=== PATIENT | male | born 1970 | race Caucasian/White ===

== ENCOUNTER 2018-05-07 15:46 | Emergency (ER) | payer MEDICARE, OTHER, SELFPAY ==
[2018-05-07 16:01] VITALS: BP 132/64; PULSE 96; RESP 18; TEMP 36.7; O2SAT 96; BMI 28.7
--- NOTE | 2018-05-07 18:44 | PC.NURSE ---
pt has wound that is already in final stages of healing, scab closing laceration. no drainage no redness. Asked to place a bacitracin dressing on. Used bacitracin, adaptic dressing and then conforming guaze around that.
--- NOTE | 2018-05-12 14:06 | ED.WOUNDLAC ---
HPI - Wound/Laceration General Chief Complaint: Wound/Laceration Stated Complaint: PAIN/LACERATION R ELBOW Time Seen by Provider: 05/07/18 17:46 Source: patient and family Mode of arrival: ambulatory Limitations: no limitations History of Present Illness HPI narrative: Patient presents emergency department complaining of laceration to right elbow. Patient's stay in the wound about 24 hr ago after striking the elbow on a sharp edge. Patient's mother states that the patient did not want to seek any medical attention at the time, and so the wound was simply washed and bandaged. The patient was not injured in any other way. He denies drainage from the wound. No redness or swelling spreading way from the wound. No fevers or chills. No other complaints at this time. Related Data Previous Rx's Medication Instructions Recorded Depakote 500 mg tablet,delayed 500 mg PO BID 30 Days #60 tab NS 10/21/17 release Risperdal 1 mg tablet 2 mg PO QAM 30 Days #60 tab NS 10/21/17 Risperdal 3 mg tablet 3 mg PO BEDTIME 30 Days #30 tab NS 10/21/17 benztropine 2 mg tablet 2 mg PO BID 30 Days #60 tab NS 10/21/17 Ativan 0.5 mg tablet 1 mg PO BID #124 tab NS MDD 5 tabs 02/14/18 Risperdal 1 mg tablet See Rx Instructions PO DAILY #450 03/02/18 tab NS Allergies Allergy/AdvReac Type Severity Reaction Status Date / Time No Known Drug Allergies Allergy Verified 05/07/18 16:01 Review of Systems Constitutional Denies chills, Denies fever(s), Denies lethargy and Denies weakness Eyes Denies change in vision, Denies eye discharge, Denies irritation and Denies loss of vision ENT Ears, Nose, Mouth, and Throat: Denies change in voice, Denies neck pain and Denies sore throat Cardiovascular Denies chest pain, Denies irregular heart rhythm, Denies lightheadedness, Denies palpitations, Denies dyspnea, Denies dyspnea on exertion and Denies orthopnea Respiratory Denies cough, Denies dyspnea, Denies dyspnea on exertion and Denies wheezing Gastrointestinal Gastrointestinal: Denies abdominal pain, Denies change in bowel habits, Denies diarrhea, Denies nausea and Denies vomiting Genitourinary Denies hematuria, Denies flank pain, Denies urinary incontinence and Denies urinary urgency Musculoskeletal Denies neck pain Integumentary/Breasts Denies pruritus, Denies erythema, Denies rash and Reports wounds ( Laceration right elbow) Neurologic Denies confusion, Denies loss of vision and Denies weakness Psychiatric Denies anxiety, Denies confusion, Denies depression, Denies homicidal ideation and Denies suicidal ideation Endocrine Denies palpitations Hematologic/Lymphatic Denies easy bruising Allergic/Immunologic Denies wheezing PFSH Medical History Developmental delay, mild (Acute) Surgical History No pertinent past surgical history (Acute) Family History Mother Hypertension Obstructive sleep apnea of adult Social History marital status: unmarried,single household members: other lives independently: No housing: house occupational status: unemployed seatbelt use: always firearms in home: No Smoking Status: Never smoker alcohol intake: never during the past year weight has: remained stable caffeine: No Type(s) of exercise: walking and regular exercise Family History Mother Hypertension Obstructive sleep apnea of adult Social History marital status: unmarried,single household members: other lives independently: No housing: house occupational status: unemployed seatbelt use: always firearms in home: No Smoking Status: Never smoker alcohol intake: never during the past year weight has: remained stable caffeine: No Type(s) of exercise: walking and regular exercise Exam Initial Vital Signs Initial Vital Signs: Vital Signs Temperature 98.1 F 05/07/18 16:01 Pulse Rate 96 H 05/07/18 16:01 Respiratory Rate 18 05/07/18 16:01 Blood Pressure 132/64 05/07/18 16:01 Pulse Oximetry 96 05/07/18 16:01 Const General: cooperative and well developed Nutritional Appearance: well nourished Orientation: alert, awake, oriented x3 and not confused HENMT Head: normocephalic and atraumatic Ears: external ears normal and TM's normal bilaterally Nose: external nose normal and No nasal discharge Face and sinus: sinuses nontender, face symmetric, no sinus tenderness and No dry mucous membranes Mouth: oral mucosae normal and moist mucous membranes Teeth and gingiva: dentition normal Throat: tonsils normal and uvula midline Eyes General: appearance normal, both eyes and all related structures Eyelids: eyelids normal Conjunctivae: conjunctivae normal Sclera: sclerae normal Pupils: PERRL EOM: EOM intact bilaterally Neck Neck: normal visual inspection, trachea midline, No lymphadenopathy, No midline deformity and No JVD Lymphatic: No lymphedema Chest Chest: normal inspection of the chest Resp Effort & Inspection: normal respiratory effort, able to speak in complete sentences, no respiratory distress and no use of accessory muscles Cardio Rate: regular rate Rhythm: regular rhythm Pulses: normal peripheral pulses Back/Spine/Pelvis Back: No CVA tenderness Cervical Spine: cervical ROM normal and No pain with cervical ROM Thoracic/Lumbar Spine: thoracic and lumbar spine normal to inspection Skin General: no rashes or lesions noted, No jaundice and No petechiae Trauma: laceration ( see below) Other: patient has a 2 cm flap laceration which is subacute appearance over the olecranon on of his right elbow. The flap was adhesed to the underlying tissue, and a scab is in place. No drainage of any kind is noted from the wound. No bleeding. No erythema or swelling. No fluctuance. Tenderness is appropriate for the degree of injury. Patient has full range of motion of the elbow. Neuro General: alert, oriented x3, gait normal and no focal motor deficits Speech: speech normal Extrem General: full ROM ( specifically, right elbow) Psych Appearance: well kempt Mental Status: mental status grossly normal Attitude: cooperative Thought Content: normal and suicidality Judgment: judgment good Course Course Narrative: I did discuss with the patient and his mother that the laceration is too old to be repaired. We have discussed the principles of wound care at home and keeping the wound clean. We have also discussed the signs of infection in the usual indications for return. The wound has been dressed in the emergency department with antibiotic ointment. Patient is stable for discharge home. MDM - Wound/Laceration Medical Records Attestation: I reviewed the patient's medical records. Discharge Plan Departure Patient Disposition: Home Clinical Impression: Laceration Discharge Date/Time: 05/07/18 18:35 Interventions: ED Discharge Assessment Last Done: 05/07/18 18:35 Instructions: DI for Minor Laceration Activity Restrictions/Additional Instructions: Your wound is too old to suture at this time. However, if you would have come in on the same day you were wounded, it would have been able to have been stitched. At this time, you should keep the wound clean and generally dry, although you may let the water and soap run over the wound in the shower. However, do not rub or scrub the area until new skin has grown over the wound. If you develop painful, increasing swelling, or intense redness spreading away from the wound, you should return to the emergency department or to your doctor's office to determine antibiotic use. Prescriptions: No Action benztropine 2 mg tablet 2 mg PO BID 30 Days Qty: 60 RF: 11 divalproex [Depakote] 500 mg tablet,delayed release (DR/EC) 500 mg PO BID 30 Days Qty: 60 RF: 11 risperidone [Risperdal] 3 mg tablet 3 mg PO BEDTIME 30 Days Qty: 30 RF: 11 risperidone [Risperdal] 1 mg tablet 2 mg PO QAM 30 Days Qty: 60 RF: 11 lorazepam [Ativan] 0.5 mg tablet 1 mg PO BID MDD 5 tabs Qty: 124 RF: 5 risperidone [Risperdal] 1 mg tablet See Rx Instructions PO DAILY Qty: 450 RF: 0
== END 2018-05-07 18:35 | disposition home or self-care (01) ==
PROVIDERS: Emergency Provider Emergency Medicine
DX: S51.011A Laceration without foreign body of right elbow, initial encounter (principal)
CPT/HCPCS: 99282; 99283

== ENCOUNTER 2020-04-10 13:33 | Emergency (ER) | payer MEDICARE, OTHER, SELFPAY ==
[2020-04-10 13:39] VITALS: BP 150/81; PULSE 101; RESP 16; TEMP 36.6; O2SAT 98; BMI 27.6
--- NOTE | 2020-04-10 14:17 | PC.NURSE ---
Pt states there has been a bat in their house for the past few days and is worried about exposure and is requesting a rabies vaccine
--- NOTE | 2020-04-10 14:58 | ED_ITS ---
HPI - Recheck/Abnormal Lab/Rx General Chief Complaint: Recheck/Abnormal Lab/Rx Stated Complaint: needs rabies shot Time Seen by Provider: 04/10/20 14:17 Source: patient and family (mother) Mode of arrival: Ambulatory Limitations: no limitations History of Present Illness HPI narrative: This is a 50-year-old male with history of Asperger's/autistic tendencies per patient's mother. Patient and mother live together. MOther states that she believes she had a bat bite in the last 10-14 days. There is a small bloody spot on her brow, she did not have a siding about at that time but did have contact with the bat where it fluid or head the following Tuesday and then had noted to be flying around the room and with an unusual pattern. They were not able to capture it. They left the doors open and have not seen the back since. The patient has not had any known contact with the bat but does live within the house. Patient has had the vaccine for rabies in the past secondary to the physician feeling they were high risk. He has not had the globulin. He has not had the globulin. He does take the Loprox, benztropine, Risperdal and Ativan. Patient's primary care is Dr. Arshad. Related Data Previous Rx's Medication Instructions Recorded Depakote 500 mg tablet,delayed 500 mg PO BID 30 Days #60 tab NS 07/16/19 release benztropine 2 mg tablet See Rx Instructions .ROUTE 11/13/19 .COMPLEX #60 tab Risperdal 3 mg tablet 3 mg PO BID 30 Days #60 tab NS 11/23/19 Ativan 1 mg tablet 1 mg PO .COMPLEX #100 tab NS MDD 02/19/20 2.5MG lorazepam 0.5 mg tablet 1 mg PO .COMPLEX #125 tab 03/11/20 Allergies Allergy/AdvReac Type Severity Reaction Status Date / Time No Known Drug Allergies Allergy Verified 04/10/20 13:39 Review of Systems Review of Systems ROS Unobtainable: All systems reviewed & are unremarkable except as noted in HPI and below Patient History Medical History Developmental disability (~1970) Excessive daytime sleepiness Insomnia, persistent Surgical History No pertinent past surgical history Family History Mother Hypertension Obstructive sleep apnea of adult Social History marital status: unmarried,single household members: other lives independently: No housing: house occupational status: unemployed seatbelt use: always firearms in home: No Smoking Status: Never smoker alcohol intake: never during the past year weight has: remained stable caffeine: No Type(s) of exercise: walking and regular exercise Smoking Status: Never smoker Exam Narrative Exam Narrative: GENERAL: Alert and oriented x three, well-nourished male in no acute distress. HEENT: Head normocephalic, atraumatic, EOMI, pupils reactive, face symmetric, moist mucous membranes NECK: Supple, full range of motion CARDIOVASCULAR: Regular rate and rhythm without murmurs, rubs or gallops. RESPIRATORY: Breath sounds equal bilaterally, no wheezes rales or rhonchi. ABDOMEN: Soft, nontender. Normoactive bowel sounds all 4 quadrants. No guarding or rebound, rigidity, no mass : No CVA tenderness EXTREMITIES: Normal range of motion, no clubbing or edema. Neurovascularly in tact NEUROLOGICAL: Cranial nerves II through XII grossly intact. Moving all extremities SKIN: Warm, dry, no petechiae, no rashes or lesions. Initial Vital Signs Initial Vital Signs: Vital Signs Temperature 97.8 F 04/10/20 13:39 Pulse Rate 101 H 04/10/20 13:39 Respiratory Rate 16 04/10/20 13:39 Blood Pressure 150/81 H 04/10/20 13:39 Pulse Oximetry 98 04/10/20 13:39 Course Orders Ordered: Discontinued Medications Rabies Vaccine (Rabies Vaccine (Rabavert) 2.5 Units Syringe) 2.5 units IM .ONCE ONE Stop: 04/10/20 14:47 Last Admin: 04/10/20 15:01 Dose: 2.5 units Documented by: GI Vital Signs Vital signs: Vital Signs - 8 hr 04/10/20 13:39 04/10/20 15:16 04/10/20 15:44 Temperature 97.8 F Pulse Rate 101 H 105 H 99 H Respiratory Rate 16 Blood Pressure 150/81 H 144/80 H 143/74 H Pulse Oximetry 98 96 97 MDM - Recheck/Abnormal Lab/Rx MDM Narrative Medical decision making narrative: CDC guidelines were reviewed as patient has had his rabies vaccine in the past in 2006 but has not received the globulin. It is recommended by the CDC that patient have the vaccine but not the globulin. On day 0 and 3 for 2 doses total. Discharge Plan Departure Patient Disposition: Home Clinical Impression: Need for immunization against rabies Instructions: DI for Rabies Vaccine Activity Restrictions/Additional Instructions: CDC guidelines recommend that you have the rabies immunization for two doses total. Day 0-04/10/20 Day 3-04/13/20 is when you should receive your second dose It is recommended that you have at least 2 weeks from your last rabies vaccine between immunizations when receiving your Pfizer coronavirus vaccination, this would 04/28/20 or later. Please feel free to consult your physician for further recommendations. If you have any fevers, rashes, swelling of her lips face or mouth, altered mental status, new weakness numbness, difficulty with movement, chest pain, shortness of breath, dysphagia, or other new or concerning symptoms please return to the department for repeat evaluation. Prescriptions: No Action benztropine 2 mg tablet See Rx Instructions .ROUTE .COMPLEX Qty: 60 RF: 11 lorazepam [Ativan] 1 mg tablet 1 mg PO .COMPLEX MDD 2.5MG Qty: 100 RF: 2 Hold Instructions: 03/03/20 trying generic lorazepam 0.5 mg tablet 1 mg PO .COMPLEX Qty: 125 RF: 1 divalproex [Depakote] 500 mg tablet,delayed release (DR/EC) 500 mg PO BID 30 Days Qty: 60 RF: 11 risperidone [Risperdal] 3 mg tablet 3 mg PO BID 30 Days Qty: 60 RF: 5 Referrals: Porter Arshad MD [Primary Care Provider] -
[2020-04-10] MEDS: RABIES VACCINE (RABAVERT) 2.5 UNITS SYRINGE IM (15:01)
[2020-04-10 15:16] VITALS: BP 144/80; PULSE 105; O2SAT 96
[2020-04-10 15:44] VITALS: BP 143/74; PULSE 99; O2SAT 97
== END 2020-04-10 15:55 | disposition home or self-care (01) ==
PROVIDERS: Emergency Provider Emergency Medicine; PCP Internal Medicine
DX: S01.159A Open bite of unspecified eyelid and periocular area, initial encounter (principal); W64.XXXA Exposure to other animate mechanical forces, initial encounter; Z23 Encounter for immunization; F84.5 Asperger's syndrome
CPT/HCPCS: 90471; 90675; 99281; 99283

== ENCOUNTER 2020-04-14 14:28 | Emergency (ER) | payer MEDICARE, OTHER, SELFPAY ==
--- NOTE | 2020-04-14 14:48 | ED_ITS ---
HPI - Recheck/Abnormal Lab/Rx General Chief Complaint: Environmental Exposure Stated Complaint: second rabies titer Time Seen by Provider: 04/14/20 14:46 Source: patient and family Mode of arrival: Ambulatory Limitations: no limitations History of Present Illness HPI narrative: 50-year-old male nonsmoker with history of Asperger's returns with his mother requesting the 2nd, scheduled rabies shot. He notes mother both had a bat flying around their home at some point in the last 2 weeks and possibly had a bite. They were seen and evaluated here in the emergency department and had the initial shot on 04/10. He has had no symptoms. He has no chest pain or cough. He has no fever chills. He has no nausea, vomiting or diarrhea. Initial visit (ago): day(s) Initial visit for: animal bite Symptoms since prior visit: no new symptoms Associated symptoms: none Related Data Previous Rx's Medication Instructions Recorded Depakote 500 mg tablet,delayed 500 mg PO BID 30 Days #60 tab NS 07/16/19 release benztropine 2 mg tablet See Rx Instructions .ROUTE 11/13/19 .COMPLEX #60 tab Risperdal 3 mg tablet 3 mg PO BID 30 Days #60 tab NS 11/23/19 Ativan 1 mg tablet 1 mg PO .COMPLEX #100 tab NS MDD 02/19/20 2.5MG lorazepam 0.5 mg tablet 1 mg PO .COMPLEX #125 tab 03/11/20 Allergies Allergy/AdvReac Type Severity Reaction Status Date / Time No Known Drug Allergies Allergy Verified 04/10/20 13:39 Review of Systems Constitutional Constitutional: Denies chills, Denies fatigue, Denies fever(s), Denies frequent falls, Denies lethargy and Denies weakness Eyes Eyes: Denies change in vision, Denies eye discharge, Denies irritation and Denies loss of vision ENT Ears, Nose, Mouth, and Throat: Denies change in voice, Denies dizziness, Denies neck pain, Denies sore throat and Denies throat swelling Cardiovascular Cardiovascular: Denies chest pain, Denies irregular heart rhythm, Denies lightheadedness, Denies palpitations, Denies dyspnea, Denies dyspnea on exertion and Denies orthopnea Respiratory Respiratory: Denies cough, Denies dyspnea, Denies dyspnea on exertion and Denies wheezing Gastrointestinal Gastrointestinal: Denies abdominal pain, Denies change in bowel habits, Denies diarrhea, Denies nausea and Denies vomiting Musculoskeletal Musculoskeletal: Denies neck pain and Denies numbness Integumentary/Breasts Skin/Breast: Denies pruritus, Denies erythema, Denies rash and Denies wounds Neurologic Neurologic: Denies behavioral changes, Denies confusion, Denies dizziness, Denies frequent falls, Denies loss of vision, Denies numbness and Denies weakness Psychiatric Psychiatric: Denies anxiety, Denies behavioral changes, Denies confusion, Denies depression, Denies homicidal ideation and Denies suicidal ideation Endocrine Endocrine: Denies fatigue, Denies flushing and Denies palpitations Hematologic/Lymphatic Hematologic/Lymphatic: Denies easy bruising Allergic/Immunologic Allergic/Immunologic: Denies urticaria, Denies throat swelling and Denies w heezing Patient History Medical History Developmental disability (~1970) Excessive daytime sleepiness Insomnia, persistent Surgical History No pertinent past surgical history Family History Mother Hypertension Obstructive sleep apnea of adult Social History marital status: unmarried,single household members: other lives independently: No housing: house occupational status: unemployed seatbelt use: always firearms in home: No Smoking Status: Never smoker alcohol intake: never during the past year weight has: remained stable caffeine: No Type(s) of exercise: walking and regular exercise Smoking Status: Never smoker Exam Narrative Exam Narrative: GEN: Awake, alert. EYES: Pupils are equal, round, and reactive to light and accommodation. Extraoccular muscles are intact bilaterally. There is no subconjunctival hemorrhage or exudate. CHEST: Lungs are clear to auscultation bilaterally and free of wheezes, rales, or rhonchi. Heart rate is regular rhythm, there are no murmurs, clicks, rubs, or gallops. There is no chest wall tenderness. ABD: Abdomen is soft and nontender. There is no guarding or rebound. Bowel sounds are normal in all 4 quadrants. There is no mass or organomegaly. EXT: Full painless ROM of all extremities with no loss of sensation or strength. SKIN: Warm, pink, and dry. No erythema or rash Initial Vital Signs Initial Vital Signs: Vital Signs Temperature 96.7 F L 04/14/20 15:06 Pulse Rate 95 H 04/14/20 15:06 Respiratory Rate 14 04/14/20 15:06 Blood Pressure 117/64 04/14/20 15:06 Pulse Oximetry 95 04/14/20 15:06 Course Orders Ordered: Discontinued Medications Rabies Vaccine (Rabies Vaccine (Rabavert) 2.5 Units Syringe) 2.5 units IM .ONCE ONE Stop: 04/14/20 14:49 Last Admin: 04/14/20 15:13 Dose: 2.5 units Documented by: SVETA Vital Signs Vital signs: Vital Signs - 8 hr 04/14/20 15:06 04/14/20 16:02 Temperature 96.7 F L Pulse Rate 95 H 83 Respiratory Rate 14 14 Blood Pressure 117/64 137/78 Pulse Oximetry 95 100 Discharge Plan Departure Patient Disposition: Home Clinical Impression: Need for immunization against rabies Instructions: DI for Rabies Vaccine Activity Restrictions/Additional Instructions: *You have been diagnosed with [2nd rabies shot] *What to do: * Continue to Take medications as directed. Per CDC recommendations there are no more shots needed. *Follow up with your primary care provider in 2-3 days, call for an zoë ointment. Let them know you were seen in the Emergency Department and that we ask that you be seen in follow up *Return to ER if you should have any new, worsening or concerning symptoms Prescriptions: No Action benztropine 2 mg tablet See Rx Instructions .ROUTE .COMPLEX Qty: 60 RF: 11 lorazepam [Ativan] 1 mg tablet 1 mg PO .COMPLEX MDD 2.5MG Qty: 100 RF: 2 Hold Instructions: 03/03/20 trying generic lorazepam 0.5 mg tablet 1 mg PO .COMPLEX Qty: 125 RF: 1 divalproex [Depakote] 500 mg tablet,delayed release (DR/EC) 500 mg PO BID 30 Days Qty: 60 RF: 11 risperidone [Risperdal] 3 mg tablet 3 mg PO BID 30 Days Qty: 60 RF: 5 Referrals: Porter Arshad MD [Primary Care Provider] -
[2020-04-14 15:06] VITALS: BP 117/64; PULSE 95; RESP 14; TEMP 35.9; O2SAT 95; BMI 27.6
[2020-04-14] MEDS: RABIES VACCINE (RABAVERT) 2.5 UNITS SYRINGE IM (15:13)
[2020-04-14 16:02] VITALS: BP 137/78; PULSE 83; RESP 14; O2SAT 100
== END 2020-04-14 16:04 | disposition home or self-care (01) ==
PROVIDERS: Emergency Provider Emergency Medicine; PCP Internal Medicine
DX: Z23 Encounter for immunization (principal); T14.8XXA Other injury of unspecified body region, initial encounter; W64.XXXA Exposure to other animate mechanical forces, initial encounter; F84.5 Asperger's syndrome
CPT/HCPCS: 90471; 90675; 99281; 99283

== ENCOUNTER → 2020-06-02 08:55 | Outpatient (CLI) | payer MEDICARE, OTHER, SELFPAY ==
[2020-06-02 09:38] LABS: Add Manual Diff / Slide Review NO; Basophils Absolute Auto 100 /uL (0-100); Basophils Percent Auto 0.9 % (0-2); Eosinophils Absolute Auto 100 /uL (0-450); Eosinophils Percent Auto 2.1 % (2-4); Hemoglobin 14.6 g/dL (13.5-17.5); Lymphocytes Absolute Auto 3100 /uL (1100-4500); Lymphocytes Percent Auto 46.2 % (25-40); Mean Corpuscular HGB Conc 33.9 % (30-36); Mean Corpuscular Hemoglobin 28.1 PG (26-34); Mean Corpuscular Volume 82.8 fL (80-100); Monocytes Absolute Auto 500 /uL (0-900); Monocytes Percent Auto 7.8 % (3-14); Neutrophils Absolute Auto 2900 /uL (1500-7000); Platelet Count 212 X10^3/uL (150-400); Red Blood Cell Count 5.19 X10^6/uL (4.5-5.9); Red Cell Distribution Width 13.8 % (11.6-14.8); White Blood Cell Count 6.6 X10^3/uL (4.5-11.0)
[2020-06-02 09:54] LABS: Hemoglobin A1C% w Est Avg Glu 5.6 % (4.0-6.0)
[2020-06-02 10:26] LABS: BUN Creatinine Ratio 13.5 (6-22); Blood Urea Nitrogen 10 mg/dL (9-20); Calcium 10.4 mg/dL (8.4-10.2); Carbon Dioxide 26 mmol/L (22-32); Chloride 102 mmol/L (98-107); Estimated Glomerular Filt Rate > 60.0 mL/min (>60); Glucose 112 mg/dL (70-100); HEMOLYSIS < 15 (0-50); Potassium 4.7 mmol/L (3.4-5.1); Sodium 138 mmol/L (137-145)
[2020-06-03 02:00] LABS: Valproic Acid (Depakene) Total 61 ug/mL (50-100)
== END ==
PROVIDERS: PCP Internal Medicine; Referring Provider Internal Medicine; Visit Provider Internal Medicine
DX: F84.5 Asperger's syndrome (principal); E11.9 Type 2 diabetes mellitus without complications; R73.02 Impaired glucose tolerance (oral)
CPT/HCPCS: 36415; 80048; 80164; 83036; 85025

== ENCOUNTER 2022-02-02 11:05 | Emergency (ER) | payer MEDICARE, OTHER, SELFPAY ==
[2022-02-02 11:22] VITALS: BP 151/70; PULSE 108; RESP 16; TEMP 35.7; O2SAT 98; BMI 28.5
--- NOTE | 2022-02-02 11:33 | ED.EXTPRO ---
HPI - Extremity Problem General Chief complaint: Extremity Problem,Nontraumatic Stated complaint: right foot ingrown toenail Time Seen by Provider: 02/02/22 11:16 Source: patient Mode of arrival: Family Vehicle History of Present Illness HPI Narrative: 52-year-old male here for evaluation what he states are to ingrown toenails to his right foot. He does have an appointment with a marine engineering technicians later this month however his mother was at cardiac rehab here at the hospital and he thought that he would come over to the emergency department to have it evaluated. Describes pain to the 3rd and 4th toes of the right foot. Related Data Previous Rx's Medication Instructions Recorded Depakote 500 mg tablet,delayed 500 mg PO BID 30 days #60 tabs 07/16/19 release (divalproex) benztropine 2 mg tablet See Rx Instructions .Route 11/13/19 .COMPLEX #60 tabs Risperdal 3 mg tablet (risperidone) 3 mg PO BID 30 days #60 tabs 11/23/19 Ativan 1 mg tablet (lorazepam) 1 mg PO .COMPLEX #100 tabs 02/19/20 lorazepam 0.5 mg tablet 1 mg PO .COMPLEX #125 tabs 03/11/20 Allergies Allergy/AdvReac Type Severity Reaction Status Date / Time No Known Drug Allergies Allergy Verified 02/02/22 11:22 Review of Systems Constitutional Constitutional: Reports system reviewed and no additional complaints, except as documented Musculoskeletal Musculoskeletal: Reports system reviewed and no additional complaints, except as documented Integumentary/Breasts Skin/Breast: Reports system reviewed and no additional complaints, except as documented Patient History Medical History Developmental disability (~1970) Excessive daytime sleepiness Insomnia, persistent Surgical History No pertinent past surgical history Family History Mother Hypertension Obstructive sleep apnea of adult Social History marital status: unmarried,single household members: other lives independently: No housing: house occupational status: unemployed seatbelt use: always firearms in home: No Smoking Status: Never smoker alcohol intake: never during the past year weight has: remained stable caffeine: No Type(s) of exercise: walking and regular exercise Smoking Status: Never smoker alcohol intake frequency: 0-2 drinks per day Substance Use Type: does not use Exam Initial Vital Signs Initial Vital Signs: Vital Signs Temperature 96.2 F L 02/02/22 11:22 Pulse Rate 108 H 02/02/22 11:22 Respiratory Rate 16 02/02/22 11:22 Blood Pressure 151/70 H 02/02/22 11:22 Pulse Oximetry 98 02/02/22 11:22 Oxygen Delivery Method 02/02/22 11:22 [facility] Head: normal to inspection and normocephalic Skin General: no rashes or lesions noted Neuro General: patient alert, patient awake and moves all extremities Extrem General: capillary refill normal Other: Patient has thickened toenails to all of the toes on his right foot. The toenails that are in question which are the 3rd and 4th do not have any surrounding erythema. They are thickened. He reports that they are tender to palpation. Course Vital Signs Vital signs: Vital Signs - 8 hr 02/02/22 11:22 Temperature 96.2 F L Pulse Rate 108 H Respiratory Rate 16 Blood Pressure 151/70 H Pulse Oximetry 98 Oxygen Delivery Method Room Air MDM - Extremity (Nontraumatic) MDM Narrative Medical decision making narrative: He certainly has fungal infection/thickened toenails. This is obviously not new. I am not 100% convinced that he does have ingrowing toenails to the toes that are painful. He has no fevers. I did offer to remove his toenails however he would like to wait until he sees Podiatry later this month. Discharge Plan Departure Patient Disposition: Home Clinical Impression: Hypertrophic toenail Activity Restrictions/Additional Instructions: I do recommend that you keep your appointment with Podiatry later this month. Return to the emergency department for any new or worsening symptoms. Prescriptions: No Action benztropine 2 mg tablet See Rx Instructions .ROUTE .COMPLEX Qty: 60 11RF Dose Instruction: TAKE 1 TABLET BY MOUTH TWICE DAILY Rx Instructions: TAKE 1 TABLET BY MOUTH TWICE DAILY lorazepam [Ativan] 1 mg tablet 1 mg PO .COMPLEX MDD 2.5MG Qty: 100 2RF Hold Instructions: 03/03/20 trying generic Rx Instructions: 1 tab BID scheduled; ok for extra 0.5mg weekly if needed for severe anxiety; Request unopened Ativan bottle. lorazepam 0.5 mg tablet 1 mg PO .COMPLEX Qty: 125 1RF Rx Instructions: 1 mg PO BID scheduled, ok to take additional 0.5mg/week prn severe anxiety; divalproex [Depakote] 500 mg tablet,delayed release (DR/EC) 500 mg PO BID 30 Days Qty: 60 11RF risperidone [Risperdal] 3 mg tablet 3 mg PO BID 30 Days Qty: 60 5RF
== END 2022-02-02 11:43 | disposition home or self-care (01) ==
PROVIDERS: Emergency Provider Emergency Medicine
DX: L60.2 Onychogryphosis (principal)
CPT/HCPCS: 99281

== ENCOUNTER → 2023-03-29 13:48 | Outpatient (CLI) | payer MEDICARE, OTHER, SELFPAY ==
[2023-03-29 15:52] LABS: Alanine Aminotransferase 46 IU/L (<50); Aspartate Aminotransferase 33 IU/L (17-59)
== END ==
PROVIDERS: Psychiatry & Neurology Psychiatry; Referring Provider Podiatrist Foot & Ankle Surgery; Visit Provider Podiatrist Foot & Ankle Surgery
DX: B35.1 Tinea unguium (principal); F29 Unspecified psychosis not due to a substance or known physiological condition
CPT/HCPCS: 36415; 84450; 84460

== ENCOUNTER → 2023-05-20 10:40 | Outpatient (CLI) | payer MEDICARE, OTHER, SELFPAY ==
--- NOTE | 2023-05-20 10:42 | DI.CT.S_ITS ---
PROCEDURE: CT SOFT TISSUE NECK W CON INDICATIONS: Massive goiter, dysphagia TECHNIQUE: After the administration of intravenous contrast, 3.0 mm axial sections acquired from the sella to the aortic arch. Additional oblique axial 3.0 mm sections acquired through the pharynx. 3 mm thick coronal and sagittal reformats were generated. For radiation dose reduction, the following was used: automated exposure control. COMPARISON: None. FINDINGS: Image quality: Excellent. Lymph nodes: No enlarged lymph nodes seen throughout the neck. Vessels: Visualized vasculature appears patent. Mild atherosclerotic vascular calcifications. Neck spaces: The oropharynx, nasopharynx, and pharynx demonstrate no mucosal lesions. The vocal cords, false vocal cords, pyriform sinuses, epiglottis, vallecula, and tongue base all appear normal. Extramucosal spaces appear unremarkable. Glands: The parotid and submandibular glands appear normal. Thyroid gland demonstrates a markedly enlarged and heterogeneous left thyroid lobe with nodules measuring approximately 7.7 x 6.4 x 11.9 cm (TV by AP by cc). This exerts mass effect on the trachea and esophagus as well as the other structures in the neck shifting them over to the right. There is mild narrowing of the trachea. Mass effect on the upper mediastinal esophagus with possible narrowing is present.. Miscellaneous: Visualized brain and orbits appear normal. Lung apices appear clear. Superficial soft tissues appear normal. Subcutaneous nodule within the left anterior upper chest measuring 1.7 x 2.3 cm, likely an epidermal inclusion cyst. Bones: No suspicious bony lesions. Degenerative changes of the cervical spine. Postsurgical changes from multilevel laminectomy. Left maxillary sinus mucous retention cyst. Otherwise, the paranasal sinuses and mastoids appear unremarkable. IMPRESSION: Markedly enlarged left thyroid lobe as described above. This exerts mass effect on the trachea and other structures in the neck, shifting them over to the right. There is mild narrowing of the airway. Mass effect is seen involving the upper mediastinal esophagus which may contribute to patient's symptoms. No enlarged cervical lymph nodes. Dictated by: Ashok Camacho M.D. on 05/20/2023 at 15:09 Approved by: Ashok Camacho M.D. on 05/20/2023 at 15:15
== END ==
PROVIDERS: Referring Provider Otolaryngology; Visit Provider Otolaryngology
DX: E04.9 Nontoxic goiter, unspecified (principal); R13.10 Dysphagia, unspecified; M47.812 Spondylosis without myelopathy or radiculopathy, cervical region; J34.1 Cyst and mucocele of nose and nasal sinus
CPT/HCPCS: 70491; Q9967

== ENCOUNTER 2023-11-11 09:39 | Emergency (ER) | payer MEDICARE, OTHER, SELFPAY ==
[2023-11-11 09:47] VITALS: BP 133/72; PULSE 99; RESP 14; TEMP 36.2; O2SAT 99; BMI 27.3
--- NOTE | 2023-11-11 12:57 | ED.RECABL ---
HPI - Recheck/Abnormal Lab/Rx <Yvette Montes PA-C - Last Filed: 11/11/23 14:24> General Chief Complaint: Recheck/Abnormal Lab/Rx Stated Complaint: Exposed to a Bat Time Seen by Provider: 11/11/23 11:21 Source: patient Mode of arrival: Ambulatory History of Present Illness HPI narrative: Patient is a pleasant 53-year-old male here with his mother for rabies prophylaxis. Patient has no physical complaints. Patient was in the house where a bat was found. Unknown if he had contact. Related Data Previous Rx's Medication Instructions Recorded Depakote 500 mg tablet,delayed 500 mg PO BID 30 days #60 tabs 07/16/19 release (divalproex) benztropine 2 mg tablet See Rx Instructions .Route 11/13/19 .COMPLEX #60 tabs Risperdal 3 mg tablet (risperidone) 3 mg PO BID 30 days #60 tabs 11/23/19 Ativan 1 mg tablet (lorazepam) 1 mg PO .COMPLEX #100 tabs 02/19/20 lorazepam 0.5 mg tablet 1 mg (2 x 0.5 mg) PO .COMPLEX #125 03/11/20 tabs Allergies Allergy/AdvReac Type Severity Reaction Status Date / Time No Known Drug Allergies Allergy Verified 02/02/22 11:22 Review of Systems <Yvette Montes PA-C - Last Filed: 11/11/23 14:24> Review of Systems Narrative: Negative except as above Patient History <Yvette Montes PA-C - Last Filed: 11/11/23 14:24> Medical History Developmental disability (~1970) Excessive daytime sleepiness Insomnia, persistent Surgical History No pertinent past surgical history Family History Mother Hypertension Obstructive sleep apnea of adult Social History marital status: unmarried,single household members: other lives independently: No housing: house occupational status: unemployed seatbelt use: always firearms in home: No Smoking Status: Never smoker alcohol intake: never during the past year weight has: remained stable caffeine: No Type(s) of exercise: walking and regular exercise Smoking Status: Never smoker alcohol intake frequency: 0-2 drinks per day Substance Use Type: does not use Exam <Yvette Montes PA-C - Last Filed: 11/11/23 14:24> Initial Vital Signs Initial Vital Signs: Vital Signs Temperature 97.1 F L 11/11/23 09:47 Pulse Rate 99 H 11/11/23 09:47 Respiratory Rate 14 11/11/23 09:47 Blood Pressure 133/72 11/11/23 09:47 Pulse Oximetry 99 11/11/23 09:47 Oxygen Delivery Method Room Air 11/11/23 09:47 Reviewed Const Other: Height weight proportionate male, alert and oriented no acute distress Eyes Other: Pupils PERRLA EOMs intact Neuro Other: Patient baseline on the spectrum <Sherie Norman DO - Last Filed: 11/12/23 08:12> Initial Vital Signs Initial Vital Signs: Vital Signs Temperature 97.1 F L 11/11/23 09:47 Pulse Rate 99 H 11/11/23 09:47 Respiratory Rate 14 11/11/23 09:47 Blood Pressure 133/72 11/11/23 09:47 Pulse Oximetry 99 11/11/23 09:47 Oxygen Delivery Method Room Air 11/11/23 09:47 Course <Yvette Montes PA-C - Last Filed: 11/11/23 14:24> Orders Ordered: Discontinued Medications Rabies Immune Globulin (Rabies Immune Globulin 300 Unit/Ml 1ml Vial) 2,000 unit 20 unit/kg (1988 unit) IM NOW ONE Stop: 11/11/23 13:31 Last Admin: 11/11/23 14:25 Dose: Not Given Documented By: SOFIA Rabies Vaccine (Rabies Vaccine (Rabavert) 2.5 Units Syringe) 2.5 units IM .ONCE ONE Stop: 11/11/23 13:00 Last Admin: 11/11/23 14:20 Dose: 2.5 units Documented By: SOFIA Vital Signs Vital signs: Vital Signs - 8 hr 11/11/23 09:47 Temperature 97.1 F L Pulse Rate 99 H Respiratory Rate 14 Blood Pressure 133/72 Pulse Oximetry 99 Oxygen Delivery Method Room Air <Sherie Norman DO - Last Filed: 11/12/23 08:12> Orders Ordered: Discontinued Medications Rabies Immune Globulin (Rabies Immune Globulin 300 Unit/Ml 1ml Vial) 2,000 unit 20 unit/kg (1989 unit) IM NOW ONE Stop: 11/11/23 13:31 Last Admin: 11/11/23 14:25 Dose: Not Given Documented By: SOFIA Rabies Vaccine (Rabies Vaccine (Rabavert) 2.5 Units Syringe) 2.5 units IM .ONCE ONE Stop: 11/11/23 13:00 Last Admin: 11/11/23 14:20 Dose: 2.5 units Documented By: SOFIA Vital Signs Vital signs: Vital Signs - 8 hr 11/11/23 09:47 Temperature 97.1 F L Pulse Rate 99 H Respiratory Rate 14 Blood Pressure 133/72 Pulse Oximetry 99 Oxygen Delivery Method Room Air MDM - Recheck/Abnormal Lab/Rx <Yvette Montes PA-C - Last Filed: 11/11/23 14:24> MDM Narrative Medical decision making narrative: Patient 53-year-old male patient has had previous immunoglobulin, previous vaccine within the last 5 years. Per the CDC the patient does not need immunoglobulin only needs the vaccine, he will get his 1st shot now, he will get his 2nd shot on the 16th. Differential diagnosis here for post exposure rabies vaccine Discharge Plan Departure Patient Disposition: Home Clinical Impression: Need for post exposure prophylaxis for rabies Activity Restrictions/Additional Instructions: Since we are doing the prophylaxis you only need 2 you will get your 1st vaccine shot you will need to come back on the 16th for your 2nd shot this will be the completion of your treatment for prophylaxis. Prescriptions: No Action benztropine 2 mg tablet See Rx Instructions .ROUTE .COMPLEX Qty: 60 11RF Dose Instruction: TAKE 1 TABLET BY MOUTH TWICE DAILY Rx Instructions: TAKE 1 TABLET BY MOUTH TWICE DAILY lorazepam [Ativan] 1 mg tablet 1 mg PO .COMPLEX MDD 2.5MG Qty: 100 2RF Hold Instructions: 03/03/20 trying generic Rx Instructions: 1 tab BID scheduled; ok for extra 0.5mg weekly if needed for severe anxiety; Request unopened Ativan bottle. lorazepam 0.5 mg tablet 1 mg PO .COMPLEX Qty: 125 1RF Rx Instructions: 1 mg PO BID scheduled, ok to take additional 0.5mg/week prn severe anxiety; divalproex [Depakote] 500 mg tablet,delayed release (DR/EC) 500 mg PO BID 30 Days Qty: 60 11RF risperidone [Risperdal] 3 mg tablet 3 mg PO BID 30 Days Qty: 60 5RF Stand Alone Forms: Patient Portal/API ED Sign-out <Sherie Norman DO - Last Filed: 11/12/23 08:12> Cosign ED Attending Cosignature Attestation: I was available for consultation.
[2023-11-11] MEDS: RABIES VACCINE (RABAVERT) 2.5 UNITS SYRINGE IM (14:20)
== END 2023-11-11 14:38 | disposition home or self-care (01) ==
PROVIDERS: Emergency Provider Physician Assistant
DX: Z20.3 Contact with and (suspected) exposure to rabies (principal); Z23 Encounter for immunization
CPT/HCPCS: 90471; 90675; 99283

== ENCOUNTER 2023-11-14 10:03 | Emergency (ER) | payer MEDICARE, OTHER, SELFPAY ==
--- NOTE | 2023-11-14 10:14 | ED.GENADULT ---
HPI - General Adult General Chief complaint: Recheck/Abnormal Lab/Rx Stated complaint: Another round of His Rabies shot Time Seen by Provider: 11/14/23 10:13 Source: patient and family Mode of arrival: Ambulatory Limitations: no limitations History of Present Illness HPI narrative: Patient is a 53-year-old male coming in for full axis of rabies, is here with mother, they were exposed to a bat in their house. First dose was on 11/11/2023. No symptoms at this time Related Data Previous Rx's Medication Instructions Recorded Depakote 500 mg tablet,delayed 500 mg PO BID 30 days #60 tabs 07/16/19 release (divalproex) benztropine 2 mg tablet See Rx Instructions .Route 11/13/19 .COMPLEX #60 tabs Risperdal 3 mg tablet (risperidone) 3 mg PO BID 30 days #60 tabs 11/23/19 Ativan 1 mg tablet (lorazepam) 1 mg PO .COMPLEX #100 tabs 02/19/20 lorazepam 0.5 mg tablet 1 mg (2 x 0.5 mg) PO .COMPLEX #125 03/11/20 tabs Allergies Allergy/AdvReac Type Severity Reaction Status Date / Time No Known Drug Allergies Allergy Verified 02/02/22 11:22 Review of Systems Review of Systems Narrative: General: Rabies vaccine administration HEENT: Denies headache, eye drainage, eye irritation, head trauma, sore throat, voice change Cardiovascular: Denies any chest pain, palpitations, shortness of breath, tachycardia Respiratory: Denies any shortness of breath, cough, wheeze, stridor GI/: Denies any abdominal pain, nausea, vomiting, diarrhea, bright red blood per rectum, melanotic stools, urinary frequency, urinary retention, dysuria, hematuria MSK: Denies any joint pain, muscle pains, swelling Skin: Denies any rashes, lesions, discoloration Neuro: Denies any headache, lightheadedness, dizziness, fainting, weakness Psych: Denies SI/HI Patient History Medical History Developmental disability (~1970) Excessive daytime sleepiness Insomnia, persistent Surgical History No pertinent past surgical history Family History Mother Hypertension Obstructive sleep apnea of adult Social History marital status: unmarried,single household members: other lives independently: No housing: house occupational status: unemployed seatbelt use: always firearms in home: No Smoking Status: Never smoker alcohol intake: never during the past year weight has: remained stable caffeine: No Type(s) of exercise: walking and regular exercise Smoking Status: Never smoker alcohol intake frequency: 0-2 drinks per day Substance Use Type: does not use Exam Narrative Exam Narrative: General: Cooperative, comfortable, well-developed, not in acute distress HEENT: Normocephalic, atraumatic, PERRLA, normal sclera, eyelids normal, Neck: Active full range of motion, atraumatic Chest: Normal to inspection, negative crepitus, no overlying erythema ecchymosis Respiratory: Normal respiratory effort, not in acute respiratory distress, clear to auscultation bilaterally negative cough, wheeze, tachypnea, rhonchi, rales Cardiology: Regular rate rhythm negative gallop, murmur, rubs GI/: Normal to inspection, soft, nonrigid, no tenderness to palpation, exam deferred MSK: Full range of active range of motion of all 4 extremities, atraumatic Skin: No rashes lesions noted Neuro: Alert awake oriented x3, moves all 4 extremities spontaneously, cranial nerves intact, able to answer all questions appropriately follows commands appropriately Psych: Cooperative, negative suicidal or homicidal ideations Initial Vital Signs Initial Vital Signs: Vital Signs Temperature 98.0 F 11/14/23 10:16 Pulse Rate 82 11/14/23 10:16 Respiratory Rate 14 11/14/23 10:16 Blood Pressure 146/80 H 11/14/23 10:16 Pulse Oximetry 97 11/14/23 10:16 Oxygen Delivery Method Room Air 11/14/23 10:16 Course Orders Ordered: Discontinued Medications Rabies Vaccine (Rabies Vaccine (Rabavert) 2.5 Units Syringe) 2.5 units IM .ONCE ONE Stop: 11/14/23 10:20 Vital Signs Vital signs: Vital Signs - 8 hr 11/14/23 10:16 Temperature 98.0 F Pulse Rate 82 Respiratory Rate 14 Blood Pressure 146/80 H Pulse Oximetry 97 Oxygen Delivery Method Room Air Medical Decision Making Differential Diagnosis Differential Diagnosis: Encounter for rabies vaccine Medical Records Medical records reviewed: Yes I reviewed the patient's medical records. MDM Narrative Medical decision making narrative: Patient is a 53-year-old male presenting for 2nd dose of rabies vaccine tolerated 1st dose on 11/11/2023. Patient exposure to bat in house with mother. Instructed to come back on 11/18/2023 for 3rd dose of rabies vaccine. For discharge home with outpatient follow-up Discharge Plan Departure Patient Disposition: Home Clinical Impression: Encounter for repeat administration of rabies vaccination Activity Restrictions/Additional Instructions: Please return for your 3rd rabies shot on the Prescriptions: No Action benztropine 2 mg tablet See Rx Instructions .ROUTE .COMPLEX Qty: 60 11RF Dose Instruction: TAKE 1 TABLET BY MOUTH TWICE DAILY Rx Instructions: TAKE 1 TABLET BY MOUTH TWICE DAILY lorazepam [Ativan] 1 mg tablet 1 mg PO .COMPLEX MDD 2.5MG Qty: 100 2RF Hold Instructions: 03/03/20 trying generic Rx Instructions: 1 tab BID scheduled; ok for extra 0.5mg weekly if needed for severe anxiety; Request unopened Ativan bottle. lorazepam 0.5 mg tablet 1 mg PO .COMPLEX Qty: 125 1RF Rx Instructions: 1 mg PO BID scheduled, ok to take additional 0.5mg/week prn severe anxiety; divalproex [Depakote] 500 mg tablet,delayed release (DR/EC) 500 mg PO BID 30 Days Qty: 60 11RF risperidone [Risperdal] 3 mg tablet 3 mg PO BID 30 Days Qty: 60 5RF Stand Alone Forms: Patient Portal/API
[2023-11-14 10:16] VITALS: BP 146/80; PULSE 82; RESP 14; TEMP 36.7; O2SAT 97
[2023-11-14] MEDS: RABIES VACCINE (RABAVERT) 2.5 UNITS SYRINGE IM (10:32)
== END 2023-11-14 10:37 | disposition home or self-care (01) ==
PROVIDERS: Emergency Provider Student in an Organized Health Care Education/Training Program
DX: Z20.3 Contact with and (suspected) exposure to rabies (principal); Z23 Encounter for immunization
CPT/HCPCS: 90471; 90675; 99283

== ENCOUNTER → 2024-03-06 10:52 | Outpatient (CLI) | payer MEDICARE, OTHER, SELFPAY ==
[2024-03-06 12:05] LABS: Alanine Aminotransferase 34 IU/L (<50); Albumin 4.5 g/dL (3.5-5.0); Albumin Globulin Ratio 1.6 (1.0-2.8); Alkaline Phosphatase 59 U/L (38-126); Aspartate Aminotransferase 28 IU/L (17-59); BUN Creatinine Ratio 22.9 (6-22); Bilirubin Total 0.5 mg/dL (0.2-1.3); Blood Urea Nitrogen 16 mg/dL (9-20); Calcium 9.8 mg/dL (8.4-10.2); Carbon Dioxide 25 mmol/L (22-32); Chloride 106 mmol/L (98-107); Estimated Glomerular Filt Rate > 60 mL/min (>60); Globulin 2.8 g/dL (1.7-4.1); Glucose 122 mg/dL (70-100); HEMOLYSIS < 15 (0-50); Potassium 4.3 mmol/L (3.4-5.1); Sodium 140 mmol/L (137-145); Total Protein 7.3 g/dL (6.3-8.2)
[2024-03-07 04:36] LABS: Valproic Acid (Depakene) Total 22 ug/mL (50-100)
== END ==
LOC: LAB 10:56
PROVIDERS: Referring Provider Psychiatry & Neurology Psychiatry; Visit Provider Psychiatry & Neurology Psychiatry
DX: F29 Unspecified psychosis not due to a substance or known physiological condition (principal)
CPT/HCPCS: 36415; 80053; 80164

== ENCOUNTER 2024-03-06 12:58 | Emergency (ER) | payer MEDICARE, OTHER, SELFPAY ==
[2024-03-06 13:01] VITALS: BP 130/80; PULSE 105; RESP 20; TEMP 37.1; O2SAT 97; BMI 28.7
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
[2024-03-06 14:09] LABS: Add Manual Diff / Slide Review NO; Basophils Absolute Auto 100 /uL (0-100); Basophils Percent Auto 0.7 % (0-2); Eosinophils Absolute Auto 100 /uL (0-450); Eosinophils Percent Auto 0.7 % (2-4); Hematocrit 42.4 % (41-53); Hemoglobin 14.2 g/dL (13.5-17.5); Lymphocytes Absolute Auto 2400 /uL (1100-4500); Lymphocytes Percent Auto 27.6 % (25-40); Mean Corpuscular HGB Conc 33.5 % (30-36); Mean Corpuscular Hemoglobin 28.1 PG (26-34); Mean Corpuscular Volume 83.9 fL (80-100); Monocytes Absolute Auto 500 /uL (0-900); Monocytes Percent Auto 5.6 % (3-14); Neutrophils Absolute Auto 5700 /uL (1500-7000); Neutrophils Percent Auto 65.4 % (50-75); Platelet Count 224 X10^3/uL (150-400); Red Blood Cell Count 5.06 X10^6/uL (4.5-5.9); Red Cell Distribution Width 14.6 % (11.6-14.8); White Blood Cell Count 8.8 X10^3/uL (4.5-11.0)
[2024-03-06 14:11] LABS: Appearance Urine UA CLEAR; Bilirubin Urine UA NEGATIVE (NEGATIVE); Color Urine UA YELLOW; Glucose Urine UA 2+ g/dL (Negative); Ketones Urine UA 1+ (NEGATIVE); Leukocyte Esterase Urine UA NEGATIVE (NEGATIVE); Nitrite Urine UA NEGATIVE (Negative); Occult Blood Urine UA NEGATIVE (Negative); Protein Urine UA NEGATIVE (Negative); Specific Gravity Urine UA >=1.030 (1.000-1.035); Urobilinogen Urine UA 0.2 E.U./dL (0.2)
[2024-03-06 14:16] LABS: UR Morphine/Opiate cutoff 300 Negative (Negative); Ur Creatinine Normal (Normal); Ur Specific Gravity Normal (Normal); Urine Amphetamines Negative (Negative); Urine Barbiturates Negative (Negative); Urine Benzodiazepines Positive (Negative); Urine Cocaine Negative (Negative); Urine MDMA Negative (Negative); Urine Methadone Negative (Negative); Urine Methamphetamines Negative (Negative); Urine Oxycodone Negative (Negative); Urine Phencyclidine Negative (Negative); Urine Tetrahydrocannabinol Negative (Negative); Urine Tricyclic Antidepressant Negative (Negative); Urine pH Normal (Normal)
[2024-03-06 14:28] LABS: Acetaminophen < 10 ug/mL (10-30); Alanine Aminotransferase 42 IU/L (<50); Albumin 4.8 g/dL (3.5-5.0); Albumin Globulin Ratio 1.5 (1.0-2.8); Alkaline Phosphatase 58 U/L (38-126); Aspartate Aminotransferase 37 IU/L (17-59); BUN Creatinine Ratio 20.8 (6-22); Bilirubin Total 0.5 mg/dL (0.2-1.3); Blood Urea Nitrogen 15 mg/dL (9-20); Carbon Dioxide 25 mmol/L (22-32); Chloride 104 mmol/L (98-107); Estimated Glomerular Filt Rate > 60 mL/min (>60); Ethanol (ETOH) < 10 mg/dL; Globulin 3.1 g/dL (1.7-4.1); HEMOLYSIS 16 (0-50); Salicylate < 1.0 mg/dL (<20); Sodium 140 mmol/L (137-145); Total Protein 7.9 g/dL (6.3-8.2)
[2024-03-06 14:30] LABS: Calcium 9.9 mg/dL (8.4-10.2); Glucose 129 mg/dL (70-100); Potassium 4.1 mmol/L (3.4-5.1)
[2024-03-06 14:33] LABS: Bacteria Urine None Seen; Mucus Urine 1+ (Negative); RBC Urine None Seen (0-5/HPF); Squamous Epithelial Cell Urine None Seen (0-5/HPF); Urine Volume 10mL (spun); WBC Urine None Seen (0-5/HPF)
[2024-03-06 14:34] LABS: Culture Indicated Urine Cult Not Indicated
[2024-03-06 14:37] LABS: COVID19 -Nasal RAPID Negative (Negative)
[2024-03-06 14:58] LABS: TSH w/ Reflex to FT4 2.16 uIU/mL (0.47-4.68)
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
[2024-03-07 07:40] LABS: Valproic Acid (Depakene) Total 22 ug/mL (50-100)
== END 2024-03-06 15:30 | disposition home or self-care (01) ==
PROVIDERS: Emergency Provider Emergency Medicine
DX: R45.1 Restlessness and agitation (principal); F84.0 Autistic disorder; Z87.820 Personal history of traumatic brain injury; Z11.52 Encounter for screening for COVID-19
CPT/HCPCS: 36415; 80053; 80164; 80305; 80320; 80329; 81001; 84443; 85025; 87635; 99283; G0480